=== PATIENT | male | born 1975 | race African-American/Black ===

== ENCOUNTER 2017-04-03 20:49 | Emergency (ER) | payer MEDICAID ==
[~2017-04-03] VITALS: Ht 165.1 cm; Wt 68.0 kg
[2017-04-03 21:07] VITALS: BP 115/72
== END 2017-04-03 22:24 | disposition home or self-care (01) ==
LOC: ER 20:55
DX: J06.9 Acute upper respiratory infection, unspecified (principal)
CPT/HCPCS: A4606; Z7610

== ENCOUNTER 2017-05-05 15:46 | Emergency (ER) | payer MEDICAID ==
[~2017-05-05] VITALS: Ht 172.7 cm; Wt 77.1 kg
[2017-05-05 18:31] VITALS: BP 139/85
== END 2017-05-05 18:31 | disposition home or self-care (01) ==
LOC: ER 15:52
DX: M54.12 Radiculopathy, cervical region (principal); F10.10 Alcohol abuse, uncomplicated; F41.9 Anxiety disorder, unspecified
CPT/HCPCS: 71045; 93005; 99284; A4606; Z7610